=== PATIENT | male | born 1960 | race Caucasian/White ===

== ENCOUNTER 2017-12-23 21:37 | Emergency (ER) | payer OTHER ==
[~2017-12-23] VITALS: Ht 167.6 cm; Wt 69.9 kg
[2017-12-23 21:47] VITALS: BP 139/59
[2017-12-23] MEDS ORDERED: KETOROLAC 30 MG/ML VIAL IM ONE (22:15)
[2017-12-23 22:50] VITALS: BP 139/59
== END 2017-12-23 22:50 | disposition home or self-care (01) ==
LOC: MED 21:37
DX: S70.01XA Contusion of right hip, initial encounter (principal); S50.01XA Contusion of right elbow, initial encounter; W19.XXXA Unspecified fall, initial encounter; Y93.89 Activity, other specified; Y92.89 Other specified places as the place of occurrence of the external cause; Y99.8 Other external cause status
CPT/HCPCS: 29125; 73110; 73502; 96372; 99284; J1885

== ENCOUNTER 2018-01-07 13:16 | Emergency (ER) | payer OTHER ==
[~2018-01-07] VITALS: Ht 167.6 cm; Wt 70.8 kg
[2018-01-07 13:31] VITALS: BP 149/96
--- NOTE | 2018-01-07 13:52 | NUR ---
PT. CAME INTO ED DUE TO NEEDING XRAYS ON R WRIST AND EXPERIENCING PAIN UPON MOVEMENT. PT. STATES " I CAME INTO THE ER 12/23/17 AND TOLD ME IT WASNT BROKEN BUT TO COME BACK TO LET THE SWELLING GO DOWN AND XRAY IT AGAIN , THATS WHY IM HERE". PT. IS AAOX4, RR EVEN AND UNLABORED, DENIES CHEST PAIN, DENIES SOB, DENIES FEVER, DENIES N/V/D. 12/20 PAIN IN R WRIST UPON REPETITIVE MOVEMENT BUT NO PAIN WHEN RESTING. ER MD NOTIFIED. ABLE TO MOVE FINGERS FREELY, CAP REFILL LESS THAN 3 SEC. SAFETY PRECAUTIONS IN PLACE WILL CONTINUE TO MONITOR.
--- NOTE | 2018-01-07 14:27 | NUR ---
XRAY AT BEDSIDE
[2018-01-07 14:50] VITALS: BP 149/96
--- NOTE | 2018-01-07 14:50 | NUR ---
Patient discharged with v/s stable. Written and verbal after care instructions given and explained. Patient verbalized understanding. Ambulatory with steady gait. All questions addressed prior to discharge. Advised to follow up with PMD.
== END 2018-01-07 14:50 | disposition home or self-care (01) ==
LOC: MED 13:16
DX: S63.501A Unspecified sprain of right wrist, initial encounter (principal); X58.XXXA Exposure to other specified factors, initial encounter; Y93.89 Activity, other specified; Y99.8 Other external cause status; Y92.89 Other specified places as the place of occurrence of the external cause
CPT/HCPCS: 73110; 99284; Q0092